=== PATIENT | female | born 1965 | race Caucasian/White ===

== ENCOUNTER → 2016-08-15 | Day surgery (SDC) | payer BC ==
[~2016-08-15] MED LIST: ASPI81TA50 PO; FENTANYL PF 100 MCG/2 ML VIAL. ONE; IV RINGERS,LACTATED 1000ML 1,000 ML IV SCH; LIDOCAINE 2% PF Vial for OR 5 ML VIAL. ONE; METO25TA4 PO; METOPROLOL TARTRATE 5 MG/5 ML VIAL. ONE; PANT40TA5 PO; PROPOFOL 20 ML IV ONE
[2016-08-15 10:31] LABS: NEG OBC UR NEG; POS OBC UR POS
[2016-08-15 11:31] VITALS: BP 109/84
--- NOTE | 2016-08-16 16:51 | PATHOLOGY ---
PATHOLOGY REPORT * * * * * * * * FINAL DIAGNOSIS: A. Small bowel biopsy: - No significant pathologic abnormalities. B. Gastric antral biopsy: - Mild active chronic gastritis. C. Distal esophageal biopsy: - Segments of mildly hyperplastic squamous esophageal mucosa and gastric mucosa showing mild chronic inflammation. D. Middle esophageal biopsy: - Segments of mildly hyperplastic squamous esophageal mucosa. COMMENT: Sections of the small bowel biopsy reveal segments of duodenal and small intestine mucosa. Where best-oriented, the mucosal villi appear normal. There are no sprue-like changes or significant inflammatory changes. Sections of the gastric antral biopsy show congestion and mild active chronic inflammation. An immunoperoxidase stain for Helicobacter is obtained. No Helicobacter organisms are identified. Sections of the distal esophageal biopsy reveal segments of mildly hyperplastic squamous esophageal mucosa and gastric mucosa showing mild chronic inflammation. The findings are consistent with reflux. There is no evidence of Edgar's change, dysplasia or malignancy. Sections of the middle esophageal biopsy reveal segments of focally tangentially oriented, mildly hyperplastic squamous esophageal mucosa. There is no evidence of Edgar's change, dysplasia or malignancy. (JPM:csd; d/t: 08/16/2016) Immunoperoxidase stains: Helicobacter pylori (B1) REPORT ELECTRONICALLY SIGNED BY: Ho Bowers M.D. DATE/TIME: 08/16/2016 16:44 * * * * * * * * GROSS PATHOLOGY: A. Received in formalin labeled "Vicente, Jeff and small bowel bx," are 4 segments of workman soft tissue measuring 1.3 x 0.3 x 0.3 cm in aggregate dimensions and ranging from 0.2 to 0.5 cm in maximum dimension. The specimen is submitted entirely in cassette A1. B. Received in formalin labeled "Vicente, Jeff and bx gastric antrum," are 4 segments of workman soft tissue measuring 1.4 x 0.3 x 0.3 cm in aggregate dimensions and ranging from 0.2 to 0.5 cm in maximum dimension. The specimen is submitted entirely in cassette B1. C. Received in formalin labeled "Vicente, Jeff and distal esophageal bx," are 2 segments of workman soft tissue measuring 0.7 x 0.2 x 0.2 cm in aggregate dimensions and measuring 0.3 and 0.4 cm in maximum dimension. The specimen is submitted entirely in cassette C1. D. Received in formalin labeled "Vicente, Jeff and mid esophageal bx," are 3 segments of workman soft tissue measuring 0.8 x 0.2 x 0.2 cm in aggregate dimensions and ranging from 0.2 to 0.3 cm in maximum dimension. The specimen is submitted entirely in cassette D1. (TTL; 08/15/2016) INITIAL CPT CODE(S): A; 63990 B; 01308, 24503 C; 13613 D; 51925 Professional services [place] [address] Technical services performed by [facility] at [address] [place] [address]. SPECIMEN(S) RECEIVED: A.Small bowel biopsy B.Gastric antrum C.Distal esophagus biopsy D.Mid esophagus biopsy CLINICAL HISTORY: Bloating, dysphagia, reflux; gastritis PATIENT: JEFF VICENTE /AGE: 1207/04/1965 (Age: 51) PATIENT #: [id number] ALT CASE #: SPECIMEN COLLECTION DATE: 08/15/2016 SPECIMEN RECEIVED DATE: 08/15/2016 [facility] - [address] [place] [address] - PHONE: [phone] * * * END OF REPORT * * *
== END | disposition home or self-care (01) ==
LOC: ENDOS 09:08
PROVIDERS: ATTEND Internal Medicine Gastroenterology
DX: K29.50 Unspecified chronic gastritis without bleeding (principal); K21.0 Gastro-esophageal reflux disease with esophagitis; I10 Essential (primary) hypertension; M19.90 Unspecified osteoarthritis, unspecified site; I38 Endocarditis, valve unspecified
CPT/HCPCS: 43239; 43450; 81025; J2704; J3010; J3490; 88305; 88342; G0641